=== PATIENT | female | born 1960 | race Caucasian/White ===

== ENCOUNTER → 2016-05-25 | Outpatient (CLI) | payer OTHER ==
[~2016-05-25] VITALS: Ht 162.6 cm; Wt 128.6 kg
[~2016-05-25] MED LIST: ADVAIR 250/501 DISK IH; BENTYL10 MG PO; DILAUDID2 MG PO; IRON160 M1 PO; LEXAPRO10 MG PO; LISINOPRIL10 MG PO; LISINOPRIL20 MG PO; LOPRESSOR50 MG PO; METFORMIN HCL1000 MG PO; METFORMIN HCL500 MG PO; METOPROLOL SUC100 MG PO; NAPROXEN250 MG PO; OMEPRAZOLE40 M1 PO; PROAIR HFA8.5 GM IH; PROTONIX40 MG PO; SINGULAIR10 MG PO; VENLAFAXINE HCL75 M3 PO; VITAMIN D31000 UNIT PO; ZANTAC150 MG PO; ZYRTEC10 M2 PO
[2016-05-25 08:44] LABS: PROTHROMBIN TIME 10.4 (9.2-11.2); PTT 25.5 (25-32)
[2016-05-25 08:54] LABS: POINT-OF-CARE METER ID UU14174212
== END | disposition home or self-care (01) ==
LOC: OPR 05-18 08:00 → EDSTATUS 08:00 → OPR 08:00
PROVIDERS: Internal Medicine Nephrology
PROC: 0TB13ZX Excision of Left Kidney, Percutaneous Approach, Diagnostic (ICD-10-PCS; principal; 2016-05-25)
DX: R80.9 Proteinuria, unspecified (principal)
CPT/HCPCS: 77012; 82948; 85610; 85730; J3010